=== PATIENT | female | born 1980 | race Caucasian/White ===

== ENCOUNTER 2017-07-17 03:05 | Emergency (ER) | payer OTHER ==
[~2017-07-17] VITALS: Ht 165.1 cm; Wt 66.9 kg
[~2017-07-17 03:05] MED LIST: No meds per pt.
[2017-07-17] MEDS ORDERED: ONDANSETRON 2MG/ML, 2ML ONE (03:53)
[2017-07-17] MEDS ORDERED: MAALOX/HYOSCYAMINE/LIDOCAINE 45 ML BTL ONE (03:53)
[2017-07-17] MEDS ORDERED: MAALOX/HYOSCYAMINE/LIDOCAINE 45 ML BTL PO ONE (04:00)
[2017-07-17] MEDS ORDERED: SODIUM CHLORIDE FLUSH 10ML SYR IVF ONE (04:00)
[2017-07-17] MEDS ORDERED: ONDANSETRON 2MG/ML, 2ML IVPush ONE (04:00)
[2017-07-17 04:18] LABS: ALBUMIN 3.6 g/dL (3.4-5.0); ANION GAP 8 mmol/L (5-15); CALCIUM 8.4 mg/dL (8.5-10.1); CHLORIDE 111 mmol/L (98-107)
[2017-07-17 04:21] LABS: ALANINE AMINOTRANSFERASE 30 U/L (12-78); ALKALINE PHOSPHATASE 67 U/L (45-117); BILIRUBIN,TOTAL 1.2 mg/dL (0.2-1.0); CREATININE 0.51 mg/dL (0.55-1.02); TOTAL PROTEIN 7.4 g/dL (6.4-8.2)
[2017-07-17 04:22] LABS: ACETAMINOPHEN < 2 mcg/mL (10-30); SALICYLATE LEVEL < 1.7 mg/dL (2.8-20.0)
[2017-07-17 04:46] LABS: MEAN CORPUSCULAR HEMOGLOBIN 30.5 pg (27.0-34.8); MEAN CORPUSCULAR HGB CONC 33.6 g/dL (32.4-35.8); MEAN CORPUSCULAR VOLUME 90.7 fL (80-100); MEAN PLATELET VOLUME 9.6 fL (7.4-10.4); PLATELET COUNT 56 x10^3/uL (130-400); RED BLOOD COUNT 3.98 x10^6/uL (3.82-5.3); RED CELL DISTRIBUTION WIDTH 21.6 % (9.6-15.2)
[2017-07-17 04:50] LABS: BASOPHILS # (AUTO) 0.02 x10^3/uL (0-0.1); BASOPHILS % (AUTO) 1 % (0-1); EOSINOPHILS # (AUTO) 0.02 x10^3/uL (0-0.4); EOSINOPHILS % (AUTO) 1 % (1-7); LYMPHOCYTES # (AUTO) 0.63 x10^3/uL (1-3.4); LYMPHOCYTES % (AUTO) 25 % (22-44); MD SCAN; MONOCYTES # (AUTO) 0.28 x10^3/uL (0.2-0.8); MONOCYTES % (AUTO) 11 % (2-9); NEUTROPHILS # (AUTO) 1.61 x10^3/uL (1.8-6.8); NEUTROPHILS % (AUTO) 63 % (42-75)
[2017-07-17 04:52] LABS: AMPHETAMINE SCREEN, URINE Negative (Negative); BARBITURATE SCREEN, URINE Negative (Negative); BENZODIAZEPINE SCREEN, URINE Negative (Negative); CANNABINOID SCREEN, URINE Negative (Negative); COCAINE SCREEN, URINE Negative (Negative); METHADONE SCREEN, URINE Negative (Negative); OPIATE SCREEN, URINE Negative (Negative)
[2017-07-17 04:56] LABS: CULTURE INDICATED? YES; MICROSCOPIC AUTO
[2017-07-17 05:04] VITALS: BP 102/50
== END 2017-07-17 05:12 | disposition home or self-care (01) ==
LOC: ED 05:06
DX: R10.13 Epigastric pain (principal); T47.1X1A Poisoning by other antacids and anti-gastric-secretion drugs, accidental (unintentional), initial encounter; N30.00 Acute cystitis without hematuria; Y92.89 Other specified places as the place of occurrence of the external cause
CPT/HCPCS: 36415; 80053; 80307; 80329; 81001; 83690; 84703; 85025; 87077; 87086; 93005; 96374; 99285; J2405; 87186; G0480

== ENCOUNTER 2017-09-14 20:49 | Emergency (ER) | payer OTHER ==
[~2017-09-14] VITALS: Ht 167.6 cm; Wt 61.0 kg
[2017-09-14] MEDS ORDERED: OMNIPAQUE 350 MG/ML, 100ML BOTTLE ONE (21:20)
[2017-09-14] MEDS ORDERED: MORPHINE SULFATE 4 MG/ML, 1ML IVPush PRN (21:30)
[2017-09-14] MEDS ORDERED: ONDANSETRON ODT 4 MG PO ONE (21:30)
[2017-09-14] MEDS ORDERED: MORPHINE SULFATE 4 MG/ML, 1ML ONE (21:32)
[2017-09-14] MEDS ORDERED: ONDANSETRON ODT 4 MG ONE (21:32)
[2017-09-14 21:57] LABS: ALBUMIN 3.6 g/dL (3.4-5.0); ANION GAP 7 mmol/L (5-15); CALCIUM 8.7 mg/dL (8.5-10.1); CHLORIDE 109 mmol/L (98-107)
[2017-09-14 22:03] LABS: ALANINE AMINOTRANSFERASE 28 U/L (12-78); ALKALINE PHOSPHATASE 76 U/L (45-117); BILIRUBIN,TOTAL 1.3 mg/dL (0.2-1.0); CREATININE 0.52 mg/dL (0.55-1.02); TOTAL PROTEIN 7.6 g/dL (6.4-8.2)
[2017-09-14 22:31] LABS: MICROSCOPIC AUTO
[2017-09-14 22:32] LABS: CULTURE INDICATED? YES
[2017-09-14] MEDS ORDERED: HYDROmorphone 2 MG/ML, 1ML ONE (22:38)
[2017-09-14 22:43] LABS: MEAN CORPUSCULAR HEMOGLOBIN 32.5 pg (27.0-34.8); MEAN CORPUSCULAR HGB CONC 33.8 g/dL (32.4-35.8); MEAN CORPUSCULAR VOLUME 96.4 fL (80-100); MEAN PLATELET VOLUME 9.3 fL (7.4-10.4); PLATELET COUNT 61 x10^3/uL (130-400); RED BLOOD COUNT 4.11 x10^6/uL (3.82-5.3); RED CELL DISTRIBUTION WIDTH 16.8 % (9.6-15.2)
[2017-09-14 23:00] LABS: MD YES
[2017-09-14] MEDS ORDERED: HYDROmorphone 1 MG/ML, 1ML IVPush PRN (23:00)
[2017-09-14 23:11] LABS: ANISOCYTOSIS 1+; EOS#(MANUAL) 0.13 x10^3/uL (0.0-0.4); EOS% (MANUAL) 3 % (1-7); LYMPH#(MANUAL) 1.29 x10^3/uL (1-3.4); LYMPHS% (MANUAL) 30 % (22-44); MONOS#(MANUAL) 0.17 x10^3/uL (0.3-2.7); MONOS% (MANUAL) 4 % (2-9); SEG#(MANUAL) 2.71 x10^3/uL (1.8-6.8); SEGS% (MANUAL) 63 % (42-75)
[2017-09-14 23:12] LABS: <PLATELET ESTIMATE> DECREASED; OVALOCYTES 1+; POLYCHROMASIA 1+
[2017-09-14 23:13] LABS: <PLT MORPHOLOGY> NORMAL PLT MORPH
[2017-09-15] MEDS ORDERED: METOCLOPRAMIDE 5 MG/ML, 2ML IVPush ONE (01:30)
[2017-09-15] MEDS ORDERED: METOCLOPRAMIDE 5 MG/ML, 2ML ONE (01:52)
[2017-09-15 02:49] VITALS: BP 90/54
== END 2017-09-15 02:52 | disposition home or self-care (01) ==
LOC: ED 23:59
DX: R10.84 Generalized abdominal pain (principal); K71.9 Toxic liver disease, unspecified; K59.00 Constipation, unspecified; N30.90 Cystitis, unspecified without hematuria; K74.69 Other cirrhosis of liver; B19.20 Unspecified viral hepatitis C without hepatic coma; K46.9 Unspecified abdominal hernia without obstruction or gangrene
CPT/HCPCS: 36415; 74177; 80053; 81001; 83690; 84703; 85025; 87077; 87086; 87186; 96374; 96375; 99285; J1170; J2765; Q0162; Q9967

== ENCOUNTER 2018-07-18 13:59 | Inpatient (IN) | payer OTHER ==
[~2018-07-18] VITALS: Ht 165.1 cm; Wt 68.2 kg
--- NOTE | 2018-07-18 14:10 | NUR ---
Pt wheeled to room 4, able to transfer to bed with one person assist. notified of pt's cheif complaint
[2018-07-18 14:45] LABS: INTERNATIONAL NORMALIZED RATIO 1.23 (0.93-1.1); PROTHROMBIN TIME 12.9 Seconds (9.6-11.5)
[2018-07-18] MEDS ORDERED: OMNIPAQUE 350 MG/ML, 100ML BOTTLE ONE (14:47)
--- NOTE | 2018-07-18 14:48 | NUR ---
Pt arrives to ED with . States she woke up early this am, felt fine when she took her kids to school, went back to bed and woke up around 11 am with right upper extremity weakness. Pt able to move fingers but unable to lift arm or move upper extremity without assistance. Pt reports neck and back pain, denies any falls/trauma. Per pt states she is dizzy and tired, but oriented x4. Pt able to stand on both legs, denies any weakness/defecit to lower extremities.
--- NOTE | 2018-07-18 14:51 | NUR ---
Pt reports only hx is hep c, denies any home medications
[2018-07-18 14:52] LABS: MD YES; MEAN CORPUSCULAR HEMOGLOBIN 32.5 pg (27.0-34.8); MEAN CORPUSCULAR HGB CONC 33.8 g/dL (32.4-35.8); MEAN CORPUSCULAR VOLUME 96.3 fL (80-100); MEAN PLATELET VOLUME 9.3 fL (7.4-10.4); PLATELET COUNT 52 x10^3/uL (130-400); RED BLOOD COUNT 4.06 x10^6/uL (3.82-5.3); RED CELL DISTRIBUTION WIDTH 14.1 % (9.6-15.2)
[2018-07-18] MEDS ORDERED: SODIUM CHLORIDE 0.9% 1,000ML IVBOLUS ONE (15:00)
--- NOTE | 2018-07-18 15:03 | NUR ---
MD aware of pt's decreasing BP, fluids infusing per MD orders. Pt denies any new s/s
[2018-07-18 15:07] LABS: ANISOCYTOSIS 1+; BAND#(MANUAL) 0.02 x10^3/uL; BANDS%(MANUAL) 1 % (0-7); EOS#(MANUAL) 0.02 x10^3/uL (0.0-0.4); EOS% (MANUAL) 1 % (1-7); LYMPH#(MANUAL) 0.74 x10^3/uL (1-3.4); LYMPHS% (MANUAL) 37 % (22-44); MONOS#(MANUAL) 0.12 x10^3/uL (0.3-2.7); MONOS% (MANUAL) 6 % (2-9); SEGS% (MANUAL) 55 % (42-75)
[2018-07-18 15:08] LABS: <PLATELET ESTIMATE> DECREASED; <PLT MORPHOLOGY> NORMAL PLT MORPH; POLYCHROMASIA 1+
[2018-07-18] MEDS ORDERED: SODIUM CHLORIDE FLUSH 10ML SYR IVF PRN (15:30)
--- NOTE | 2018-07-18 16:12 | NUR ---
REPORT GIVEN TO YENNY LEE.
[2018-07-18] MEDS: SODIUM CHLORIDE 0.9% 1,000 ML IV SCH (16:25)
--- NOTE | 2018-07-18 16:27 | NUR ---
pt transferred to room.
[2018-07-18] MEDS ORDERED: ONDANSETRON ODT 4 MG PO PRN (16:30)
[2018-07-18] MEDS ORDERED: ONDANSETRON 2MG/ML, 2ML IVPush PRN (16:30)
[2018-07-18] MEDS ORDERED: POLYETHYLENE GLYCOL 17 GM PACKET PO PRN (16:30)
[2018-07-18] MEDS ORDERED: ACETAMINOPHEN 325 MG TABLET PO PRN (17:00)
[2018-07-18] MEDS ORDERED: LABETALOL 5 MG/ML SYRINGE IVPush PRN (17:00)
[2018-07-18] MEDS ORDERED: GADOBUTROL 7.5 MMOL/7.5 ML PFS ONE (18:41)
[2018-07-18 19:14] VITALS: BP 101/58
[2018-07-18 19:25] VITALS: BP 101/58
[2018-07-18] MEDS: LEVETIRACETAM 500 MG TABLET PO SCH (20:24)
[2018-07-19] VITALS (13 sets, daily range): BP systolic 94–122; BP diastolic 43–78
[2018-07-19 05:05] LABS: CHLORIDE 112 mmol/L (98-107)
[2018-07-19 05:09] LABS: MEAN CORPUSCULAR HEMOGLOBIN 33.7 pg (27.0-34.8); MEAN CORPUSCULAR HGB CONC 34.8 g/dL (32.4-35.8); MEAN CORPUSCULAR VOLUME 96.8 fL (80-100); RED BLOOD COUNT 3.73 x10^6/uL (3.82-5.3); RED CELL DISTRIBUTION WIDTH 14.1 % (9.6-15.2)
[2018-07-19 05:13] LABS: ALANINE AMINOTRANSFERASE 36 U/L (12-78); ALBUMIN 3.2 g/dL (3.4-5.0); ALKALINE PHOSPHATASE 74 U/L (45-117); ANION GAP 7 mmol/L (5-15); BILIRUBIN,TOTAL 2.1 mg/dL (0.2-1.0); CALCIUM 8.5 mg/dL (8.5-10.1); CREATININE 0.43 mg/dL (0.55-1.02); TOTAL PROTEIN 6.4 g/dL (6.4-8.2)
[2018-07-19] MEDS: SODIUM CHLORIDE 0.9% 1,000 ML IV SCH (05:32)
[2018-07-19 05:56] LABS: MD YES
[2018-07-19 05:58] LABS: MEAN PLATELET VOLUME 9.6 fL (7.4-10.4)
[2018-07-19 05:59] LABS: <PLATELET ESTIMATE> DECREASED; <PLT MORPHOLOGY> NORMAL PLT MORPH; ANISOCYTOSIS 1+; BAND#(MANUAL) 0.02 x10^3/uL; BANDS%(MANUAL) 1 % (0-7); BASOS#(MANUAL) 0.04 x10^3/uL (0-0.1); BASOS% (MANUAL) 2 % (0-1); EOS#(MANUAL) 0.08 x10^3/uL (0.0-0.4); EOS% (MANUAL) 4 % (1-7); LYMPH#(MANUAL) 0.96 x10^3/uL (1-3.4); LYMPHS% (MANUAL) 48 % (22-44); MONOS#(MANUAL) 0.06 x10^3/uL (0.3-2.7); MONOS% (MANUAL) 3 % (2-9); POLYCHROMASIA 1+; SEG#(MANUAL) 0.84 x10^3/uL (1.8-6.8); SEGS% (MANUAL) 42 % (42-75)
[2018-07-19 06:01] LABS: PLATELET COUNT 42 x10^3/uL (130-400)
[2018-07-19] MEDS: LEVETIRACETAM 500 MG TABLET PO SCH (09:31)
[2018-07-19] MEDS ORDERED: DEXAMETHASONE 4 MG TABLET PO ONE (11:00)
[2018-07-19] MEDS: DEXAMETHASONE 4 MG TABLET PO SCH ×2 (12:15→17:24)
[2018-07-19] MEDS ORDERED: DIPHENHYDRAMINE 50 MG/ML, 1ML ONE (17:51)
[2018-07-19] MEDS ORDERED: DIPHENHYDRAMINE 50 MG/ML, 1ML IVPush PRN (18:00)
[2018-07-19] MEDS: LEVETIRACETAM 500 MG in SODIUM CHLORIDE 0.9% 100 ML IV SCH (20:26)
[2018-07-19] MEDS: DEXTROSE 5% 1,000 ML IV SCH (20:49)
[2018-07-20] VITALS (8 sets, daily range): BP systolic 96–119; BP diastolic 36–65
[2018-07-20 05:41] LABS: BASOPHILS % (AUTO) 0 % (0-1); EOSINOPHILS % (AUTO) 0 % (1-7); LYMPHOCYTES % (AUTO) 8 % (22-44); MD NO; MEAN CORPUSCULAR HEMOGLOBIN 33.8 pg (27.0-34.8); MEAN CORPUSCULAR HGB CONC 34.9 g/dL (32.4-35.8); MEAN CORPUSCULAR VOLUME 96.8 fL (80-100); MEAN PLATELET VOLUME 8.8 fL (7.4-10.4); MONOCYTES # (AUTO) 0.07 x10^3/uL (0.2-0.8); MONOCYTES % (AUTO) 2 % (2-9); NEUTROPHILS # (AUTO) 3.35 x10^3/uL (1.8-6.8); NEUTROPHILS % (AUTO) 90 % (42-75); PLATELET COUNT 106 x10^3/uL (130-400); RED BLOOD COUNT 3.43 x10^6/uL (3.82-5.3); RED CELL DISTRIBUTION WIDTH 13.8 % (9.6-15.2)
[2018-07-20 05:45] LABS: INTERNATIONAL NORMALIZED RATIO 1.29 (0.93-1.1); PROTHROMBIN TIME 13.5 Seconds (9.6-11.5)
[2018-07-20 05:47] LABS: ALANINE AMINOTRANSFERASE 33 U/L (12-78); ALBUMIN 3.4 g/dL (3.4-5.0); ANION GAP 7 mmol/L (5-15); CALCIUM 8.6 mg/dL (8.5-10.1); CHLORIDE 109 mmol/L (98-107); CREATININE 0.42 mg/dL (0.55-1.02)
[2018-07-20 05:50] LABS: ALKALINE PHOSPHATASE 76 U/L (45-117); BILIRUBIN,TOTAL 1.5 mg/dL (0.2-1.0); TOTAL PROTEIN 7.2 g/dL (6.4-8.2)
[2018-07-20] MEDS ORDERED: POTASSIUM CHLORIDE 20 MEQ TAB.ER.PRT PO ONE (07:00)
[2018-07-20] MEDS: LEVETIRACETAM 500 MG in SODIUM CHLORIDE 0.9% 100 ML IV SCH ×2 (08:24→19:54)
[2018-07-20] MEDS: DEXAMETHASONE 4 MG TABLET PO SCH ×3 (08:24→17:09)
[2018-07-20] MEDS ORDERED: GADOBUTROL 7.5 MMOL/7.5 ML PFS ONE (09:48)
[2018-07-20] MEDS: DEXTROSE 5% 1,000 ML IV SCH (17:11)
[2018-07-21 04:25] LABS: BASOPHILS % (AUTO) 0 % (0-1); EOSINOPHILS % (AUTO) 0 % (1-7); LYMPHOCYTES # (AUTO) 0.38 x10^3/uL (1-3.4); LYMPHOCYTES % (AUTO) 8 % (22-44); MD NO; MEAN CORPUSCULAR HEMOGLOBIN 33.4 pg (27.0-34.8); MEAN CORPUSCULAR HGB CONC 34.3 g/dL (32.4-35.8); MEAN CORPUSCULAR VOLUME 97.4 fL (80-100); MEAN PLATELET VOLUME 9.2 fL (7.4-10.4); MONOCYTES # (AUTO) 0.24 x10^3/uL (0.2-0.8); MONOCYTES % (AUTO) 5 % (2-9); NEUTROPHILS # (AUTO) 4.13 x10^3/uL (1.8-6.8); NEUTROPHILS % (AUTO) 87 % (42-75); PLATELET COUNT 112 x10^3/uL (130-400); RED BLOOD COUNT 3.59 x10^6/uL (3.82-5.3); RED CELL DISTRIBUTION WIDTH 14.3 % (9.6-15.2)
[2018-07-21 04:30] VITALS: BP 84/46
[2018-07-21] MEDS: DEXTROSE 5% 1,000 ML IV SCH ×2 (04:49→20:08)
[2018-07-21] MEDS ORDERED: SODIUM CHLORIDE 0.9%, 500ML IVBOLUS ONE (07:00)
[2018-07-21] MEDS ORDERED: NOVOSEVEN RT (FACTOR VIIA) RECOMB 1,000 MCG IVPush ONE (07:30)
[2018-07-21] MEDS ORDERED: BACITRACIN 50,000 UNIT ONE (07:34)
[2018-07-21] MEDS ORDERED: THROMBIN 5,000 UNIT VIAL TP ONE (07:34)
[2018-07-21] MEDS ORDERED: BUPIVACAINE/PF-EPI 0.5% 1:200K ONE (07:34)
[2018-07-21] MEDS ORDERED: FENTANYL PF 250 MCG/5ML ONE (07:43)
[2018-07-21] MEDS ORDERED: NEOSTIGMINE 1 MG/ML, 10ML ONE (07:46)
[2018-07-21] MEDS ORDERED: ONDANSETRON 2MG/ML, 2ML ONE (07:46)
[2018-07-21] MEDS ORDERED: DEXAMETHASONE 4 MG/ML, 1ML ONE (07:46)
[2018-07-21] MEDS ORDERED: GLYCOPYRROLATE 0.2MG/1ML, 5ML ONE (07:46)
[2018-07-21] MEDS ORDERED: CEFAZOLIN 1,000 MG ONE (07:46)
[2018-07-21] MEDS ORDERED: SUCCINYLCHOLINE 20 MG/ML, 10ML ONE (07:46)
[2018-07-21] MEDS ORDERED: PROPOFOL 10 MG/ML, 20ML ONE (07:46)
[2018-07-21] MEDS ORDERED: ROCURONIUM 10MG/ML,5ML ONE (07:46)
[2018-07-21] MEDS: DEXAMETHASONE 4 MG TABLET PO SCH ×3 (08:00→18:03)
[2018-07-21] MEDS ORDERED: MIDAZOLAM 1 MG/ML, 2ML ONE (08:03)
[2018-07-21] MEDS ORDERED: CEFUROXIME 1.5 GM ONE (08:43)
[2018-07-21] MEDS ORDERED: SUGAMMADEX 200 MG/2 ML IVPush ONE (09:19)
[2018-07-21] MEDS ORDERED: LORazepam 2 MG/ML, 1ML IVPush PRN (09:30)
[2018-07-21] MEDS ORDERED: ONDANSETRON 2MG/ML, 2ML IV PRN (09:30)
[2018-07-21] MEDS ORDERED: HYDROmorphone 2 MG/ML, 1ML IVPush PRN (09:30)
[2018-07-21] MEDS ORDERED: ONDANSETRON ODT 8 MG PO PRN (09:30)
[2018-07-21] MEDS ORDERED: ACETAMINOPHEN 325 MG TABLET PO PRN (09:30)
[2018-07-21] MEDS ORDERED: FENTANYL PF 100 MCG/2ML IV PRN (09:30)
[2018-07-21] MEDS ORDERED: OXYcodone 5 MG/5 ML ORAL.SOL UDC PO PRN (09:30)
[2018-07-21] MEDS ORDERED: NEOSPORIN OINT, 15GM ONE (09:40)
[2018-07-21] MEDS ORDERED: FENTANYL PF 100 MCG/2ML ONE (10:19)
[2018-07-21] MEDS ORDERED: BUPIVACAINE/PF-EPI 0.5% 1:200K INFIL ONE (10:23)
[2018-07-21] MEDS ORDERED: OXYcodone 5 MG/5 ML ORAL.SOL UDC ONE (10:38)
[2018-07-21] MEDS: LEVETIRACETAM 500 MG in SODIUM CHLORIDE 0.9% 100 ML IV SCH ×2 (11:27→20:08)
[2018-07-22 04:08] VITALS: BP 98/50
[2018-07-22 04:57] LABS: MEAN CORPUSCULAR HEMOGLOBIN 33.7 pg (27.0-34.8); MEAN CORPUSCULAR HGB CONC 34.4 g/dL (32.4-35.8); MEAN PLATELET VOLUME 8.9 fL (7.4-10.4); PLATELET COUNT 84 x10^3/uL (130-400); RED BLOOD COUNT 3.19 x10^6/uL (3.82-5.3); RED CELL DISTRIBUTION WIDTH 14.3 % (9.6-15.2)
[2018-07-22 05:07] LABS: ANION GAP 5 mmol/L (5-15); CALCIUM 8.1 mg/dL (8.5-10.1); CHLORIDE 107 mmol/L (98-107)
[2018-07-22 05:09] LABS: CREATININE 0.43 mg/dL (0.55-1.02)
[2018-07-22 06:11] LABS: BASOPHILS # (AUTO) 0.01 x10^3/uL (0-0.1); BASOPHILS % (AUTO) 0 % (0-1); EOSINOPHILS % (AUTO) 0 % (1-7); LYMPHOCYTES % (AUTO) 9 % (22-44); MD SCAN; MONOCYTES # (AUTO) 0.36 x10^3/uL (0.2-0.8); MONOCYTES % (AUTO) 10 % (2-9); NEUTROPHILS % (AUTO) 81 % (42-75)
[2018-07-22] MEDS: DEXAMETHASONE 4 MG TABLET PO SCH ×3 (08:30→18:32)
[2018-07-22] MEDS: LEVETIRACETAM 500 MG in SODIUM CHLORIDE 0.9% 100 ML IV SCH ×2 (08:31→19:46)
[2018-07-22 10:27] VITALS: BP 100/50
[2018-07-22 10:42] VITALS: BP 103/49
[2018-07-22 11:30] VITALS: BP 106/55
[2018-07-22] MEDS: SODIUM CHLORIDE 0.9% 1,000 ML IV SCH (17:04)
[2018-07-23] VITALS (7 sets, daily range): BP systolic 89–107; BP diastolic 42–52
[2018-07-23] MEDS: SODIUM CHLORIDE 0.9% 1,000 ML IV SCH ×2 (03:29→23:00)
[2018-07-23 04:40] LABS: ALANINE AMINOTRANSFERASE 31 U/L (12-78); ALBUMIN 2.8 g/dL (3.4-5.0); ANION GAP 3 mmol/L (5-15); CALCIUM 7.8 mg/dL (8.5-10.1); CHLORIDE 109 mmol/L (98-107); CREATININE 0.45 mg/dL (0.55-1.02)
[2018-07-23 04:42] LABS: MEAN CORPUSCULAR HEMOGLOBIN 33.3 pg (27.0-34.8); MEAN CORPUSCULAR HGB CONC 33.8 g/dL (32.4-35.8); MEAN CORPUSCULAR VOLUME 98.4 fL (80-100); MEAN PLATELET VOLUME 8.7 fL (7.4-10.4); PLATELET COUNT 83 x10^3/uL (130-400); RED BLOOD COUNT 3.32 x10^6/uL (3.82-5.3)
[2018-07-23 04:43] LABS: ALKALINE PHOSPHATASE 76 U/L (45-117); BILIRUBIN,TOTAL 1.1 mg/dL (0.2-1.0)
[2018-07-23 05:07] LABS: BASOPHILS % (AUTO) 0 % (0-1); EOSINOPHILS % (AUTO) 0 % (1-7); LYMPHOCYTES # (AUTO) 0.33 x10^3/uL (1-3.4); LYMPHOCYTES % (AUTO) 13 % (22-44); MD SCAN; MONOCYTES % (AUTO) 8 % (2-9); NEUTROPHILS # (AUTO) 1.96 x10^3/uL (1.8-6.8); NEUTROPHILS % (AUTO) 79 % (42-75)
[2018-07-23 05:34] LABS: INTERNATIONAL NORMALIZED RATIO 1.39 (0.93-1.1); PROTHROMBIN TIME 14.5 Seconds (9.6-11.5)
[2018-07-23] MEDS: LEVETIRACETAM 500 MG in SODIUM CHLORIDE 0.9% 100 ML IV SCH ×2 (08:54→20:13)
[2018-07-23] MEDS: DEXAMETHASONE 4 MG TABLET PO SCH ×3 (08:54→16:39)
[2018-07-23] MEDS: DOCUSATE 100 MG CAPSULE PO PRN (22:05)
[2018-07-24 04:06] VITALS: BP 95/52
[2018-07-24 04:55] LABS: INTERNATIONAL NORMALIZED RATIO 1.38 (0.93-1.1); PROTHROMBIN TIME 14.4 Seconds (9.6-11.5)
[2018-07-24 04:59] LABS: ALBUMIN 2.7 g/dL (3.4-5.0); ANION GAP 3 mmol/L (5-15); CALCIUM 7.8 mg/dL (8.5-10.1); CHLORIDE 109 mmol/L (98-107)
[2018-07-24 05:04] LABS: ALANINE AMINOTRANSFERASE 33 U/L (12-78); ALKALINE PHOSPHATASE 74 U/L (45-117); BILIRUBIN,TOTAL 1.1 mg/dL (0.2-1.0); CREATININE 0.46 mg/dL (0.55-1.02); TOTAL PROTEIN 6.1 g/dL (6.4-8.2)
[2018-07-24 05:50] LABS: BASOPHILS % (AUTO) 0 % (0-1); EOSINOPHILS % (AUTO) 0 % (1-7); LYMPHOCYTES % (AUTO) 15 % (22-44); MD SCAN; MEAN CORPUSCULAR HEMOGLOBIN 33.2 pg (27.0-34.8); MEAN CORPUSCULAR HGB CONC 34.4 g/dL (32.4-35.8); MEAN CORPUSCULAR VOLUME 96.7 fL (80-100); MEAN PLATELET VOLUME 8.3 fL (7.4-10.4); MONOCYTES # (AUTO) 0.13 x10^3/uL (0.2-0.8); MONOCYTES % (AUTO) 7 % (2-9); NEUTROPHILS # (AUTO) 1.52 x10^3/uL (1.8-6.8); NEUTROPHILS % (AUTO) 78 % (42-75); PLATELET COUNT 99 x10^3/uL (130-400); RED BLOOD COUNT 3.35 x10^6/uL (3.82-5.3); RED CELL DISTRIBUTION WIDTH 14.4 % (9.6-15.2)
[2018-07-24] MEDS: DEXAMETHASONE 4 MG TABLET PO SCH ×3 (08:27→17:26)
[2018-07-24] MEDS: LEVETIRACETAM 500 MG in SODIUM CHLORIDE 0.9% 100 ML IV SCH ×2 (08:28→20:13)
[2018-07-24 08:44] VITALS: BP 97/49
[2018-07-24 09:00] VITALS: BP 98/57
[2018-07-24 10:28] VITALS: BP 94/50
[2018-07-24] MEDS: METHOCARBAMOL 500 MG TABLET PO PRN (22:53)
[2018-07-25 04:00] VITALS: BP 100/49
[2018-07-25] MEDS: DEXAMETHASONE 4 MG TABLET PO SCH ×3 (07:50→18:15)
[2018-07-25] MEDS: LEVETIRACETAM 500 MG TABLET PO SCH ×2 (07:50→21:23)
[2018-07-25] MEDS: DOCUSATE 100 MG CAPSULE PO PRN (08:23)
[2018-07-25 10:51] VITALS: BP 103/51
[2018-07-25 13:34] VITALS: BP 97/54
[2018-07-25 19:50] VITALS: BP 101/64
[2018-07-26 00:28] VITALS: BP 100/53
[2018-07-26] MEDS ORDERED: BISACODYL 10 MG SUPP PR PRN (08:00)
[2018-07-26] MEDS: DEXAMETHASONE 4 MG TABLET PO SCH ×3 (08:19→17:06)
[2018-07-26] MEDS: LEVETIRACETAM 500 MG TABLET PO SCH ×2 (08:19→21:27)
[2018-07-26 08:33] VITALS: BP 94/52
[2018-07-26] MEDS: DOCUSATE 100 MG CAPSULE PO SCH ×2 (09:00→21:27)
[2018-07-26 09:08] LABS: BASOPHILS % (AUTO) 0 % (0-1); EOSINOPHILS % (AUTO) 0 % (1-7); LYMPHOCYTES # (AUTO) 0.35 x10^3/uL (1-3.4); LYMPHOCYTES % (AUTO) 10 % (22-44); MD NO; MEAN CORPUSCULAR HEMOGLOBIN 32.8 pg (27.0-34.8); MEAN CORPUSCULAR HGB CONC 33.6 g/dL (32.4-35.8); MEAN CORPUSCULAR VOLUME 97.6 fL (80-100); MEAN PLATELET VOLUME 7.8 fL (7.4-10.4); MONOCYTES % (AUTO) 8 % (2-9); NEUTROPHILS # (AUTO) 3.03 x10^3/uL (1.8-6.8); NEUTROPHILS % (AUTO) 82 % (42-75); PLATELET COUNT 109 x10^3/uL (130-400); RED BLOOD COUNT 3.95 x10^6/uL (3.82-5.3); RED CELL DISTRIBUTION WIDTH 14.6 % (9.6-15.2)
[2018-07-26] MEDS: MAGNESIUM HYDROXIDE 8%, 30ML UDC PO SCH (10:01)
[2018-07-26 13:54] VITALS: BP 92/46
[2018-07-26 18:15] VITALS: BP 98/57
[2018-07-26] MEDS: METHOCARBAMOL 500 MG TABLET PO PRN (21:35)
[2018-07-27 00:20] VITALS: BP 99/58
[2018-07-27 06:04] LABS: CHLORIDE 108 mmol/L (98-107)
[2018-07-27 06:12] LABS: ALANINE AMINOTRANSFERASE 53 U/L (12-78); ALBUMIN 2.8 g/dL (3.4-5.0); ALKALINE PHOSPHATASE 73 U/L (45-117); ANION GAP 4 mmol/L (5-15); BILIRUBIN,TOTAL 1.2 mg/dL (0.2-1.0); CALCIUM 7.8 mg/dL (8.5-10.1); CREATININE 0.47 mg/dL (0.55-1.02); TOTAL PROTEIN 5.9 g/dL (6.4-8.2)
[2018-07-27 07:50] VITALS: BP 101/60
[2018-07-27] MEDS: DEXAMETHASONE 4 MG TABLET PO SCH ×3 (08:02→16:20)
[2018-07-27] MEDS: LEVETIRACETAM 500 MG TABLET PO SCH ×2 (08:02→21:41)
[2018-07-27] MEDS: DOCUSATE 100 MG CAPSULE PO SCH ×2 (08:02→21:41)
[2018-07-27] MEDS: MAGNESIUM HYDROXIDE 8%, 30ML UDC PO SCH (08:02)
[2018-07-27 13:30] VITALS: BP 89/50
[2018-07-27 19:07] VITALS: BP 93/46
[2018-07-28 03:49] VITALS: BP 89/43
[2018-07-28] MEDS ORDERED: SODIUM CHLORIDE 0.9% 500 ML IV SCH (07:30)
[2018-07-28] MEDS: DEXAMETHASONE 4 MG TABLET PO SCH ×3 (07:44→16:57)
[2018-07-28] MEDS: MAGNESIUM HYDROXIDE 8%, 30ML UDC PO SCH (07:44)
[2018-07-28] MEDS: LEVETIRACETAM 500 MG TABLET PO SCH ×2 (07:44→22:06)
[2018-07-28] MEDS: DOCUSATE 100 MG CAPSULE PO SCH ×2 (07:44→22:06)
[2018-07-28 08:00] VITALS: BP 90/43
[2018-07-28 14:03] VITALS: BP 91/46
[2018-07-28] MEDS ORDERED: SODIUM CHLORIDE 0.9% 1,000ML IVBOLUS ONE (14:30)
[2018-07-28 19:39] VITALS: BP 99/45
[2018-07-29] MEDS: METHOCARBAMOL 500 MG TABLET PO PRN (03:00)
[2018-07-29 03:22] VITALS: BP 109/56
[2018-07-29 08:26] VITALS: BP 93/54
[2018-07-29] MEDS: MAGNESIUM HYDROXIDE 8%, 30ML UDC PO SCH (08:55)
[2018-07-29] MEDS: LEVETIRACETAM 500 MG TABLET PO SCH ×2 (08:55→21:28)
[2018-07-29] MEDS: DEXAMETHASONE 4 MG TABLET PO SCH ×3 (08:55→17:11)
[2018-07-29] MEDS: DOCUSATE 100 MG CAPSULE PO SCH ×2 (08:55→21:27)
[2018-07-29 13:06] VITALS: BP 100/61
[2018-07-29 19:23] VITALS: BP 102/65
[2018-07-30 01:07] VITALS: BP 93/53
[2018-07-30] MEDS: LEVETIRACETAM 500 MG TABLET PO SCH ×2 (08:13→19:48)
[2018-07-30] MEDS: DOCUSATE 100 MG CAPSULE PO SCH ×2 (08:13→19:48)
[2018-07-30] MEDS: DEXAMETHASONE 4 MG TABLET PO SCH ×3 (08:13→16:48)
[2018-07-30] MEDS: MAGNESIUM HYDROXIDE 8%, 30ML UDC PO SCH (08:13)
[2018-07-30 08:17] VITALS: BP 103/62
[2018-07-30 13:15] VITALS: BP 92/54
[2018-07-30 19:56] VITALS: BP 97/57
[2018-07-31 03:37] VITALS: BP 93/59
[2018-07-31 07:16] VITALS: BP 101/58
[2018-07-31] MEDS: DEXAMETHASONE 4 MG TABLET PO SCH ×3 (08:32→18:04)
[2018-07-31] MEDS: LEVETIRACETAM 500 MG TABLET PO SCH ×2 (08:32→21:01)
[2018-07-31] MEDS: DOCUSATE 100 MG CAPSULE PO SCH (08:32)
[2018-07-31] MEDS: MAGNESIUM HYDROXIDE 8%, 30ML UDC PO SCH (08:32)
[2018-07-31] MEDS ORDERED: MAGNESIUM HYDROXIDE 8%, 30ML UDC PO PRN (09:30)
[2018-07-31] MEDS ORDERED: DOCUSATE 100 MG CAPSULE PO PRN (09:30)
[2018-07-31 12:15] VITALS: BP 91/55
[2018-07-31 19:07] VITALS: BP 102/59
[2018-08-01 01:11] VITALS: BP 95/51
[2018-08-01] MEDS ORDERED: DEXA4TAB66 PO (06:56)
[2018-08-01] MEDS ORDERED: LEVE500T53 PO (06:56)
[2018-08-01 08:12] VITALS: BP 95/55
[2018-08-01] MEDS: LEVETIRACETAM 500 MG TABLET PO SCH (09:06)
[2018-08-01] MEDS: DEXAMETHASONE 4 MG TABLET PO SCH (09:06)
[2018-08-01 09:57] VITALS: BP 105/58
== END 2018-08-01 10:45 | DRG 24 ==
LOC: ED 15:22 → EDIP 15:23 → ED 15:32 → CCU 16:32 → 4NOR 07-25 10:48
PROVIDERS: ADMIT Internal Medicine; ATTEND Internal Medicine
PROC: 30233K1 Transfusion of Nonautologous Frozen Plasma into Peripheral Vein, Percutaneous Approach (ICD-10-PCS; 2018-07-20)
PROC: 00C70ZZ Extirpation of Matter from Cerebral Hemisphere, Open Approach (ICD-10-PCS; 2018-07-21)
PROC: 00B70ZX Excision of Cerebral Hemisphere, Open Approach, Diagnostic (ICD-10-PCS; 2018-07-21)
PROC: 30233R1 Transfusion of Nonautologous Platelets into Peripheral Vein, Percutaneous Approach (ICD-10-PCS; 2018-07-21)
PROC: 03HY32Z Insertion of Monitoring Device into Upper Artery, Percutaneous Approach (ICD-10-PCS; principal; 2018-07-21 07:30)
DX: I63.512 Cerebral infarction due to unspecified occlusion or stenosis of left middle cerebral artery (principal); D61.818 Other pancytopenia; G81.91 Hemiplegia, unspecified affecting right dominant side; I85.00 Esophageal varices without bleeding; B19.20 Unspecified viral hepatitis C without hepatic coma; I86.4 Gastric varices; K59.00 Constipation, unspecified; K74.60 Unspecified cirrhosis of liver; R56.9 Unspecified convulsions; R79.1 Abnormal coagulation profile; Z79.899 Other long term (current) drug therapy; Z80.1 Family history of malignant neoplasm of trachea, bronchus and lung; Z82.49 Family history of ischemic heart disease and other diseases of the circulatory system; Z88.0 Allergy status to penicillin
CPT/HCPCS: 36415; 80177; 99285; J3490; 70450; 70496; 70498; 70544; 70553; 80047; 80048; 80053; 83735; 84100; 84703; 85025; 85049; 85610; 85730; 86850; 86900; 87081; 88305; 93005; 95813; 96360; A9585; C1713; G0378; J0690; J0697; J1100; J1953; J2250; J2405; J2704; J2710; J3010; J7070; Q9967; 92523-GN; C1781; J0330; J1200; J7030; J7040; P9017; P9035

== ENCOUNTER 2020-03-22 23:59 | Emergency (ER) | payer OTHER ==
[~2020-03-22] VITALS: Ht 165.1 cm; Wt 63.6 kg
[~2020-03-22 23:59] MED LIST changes: +DEXA4TAB66 PO; +LEVE500T53 PO
--- NOTE | 2020-03-23 00:23 | NUR ---
PT. TO ROOM FROM [facility] VIA W/C AT THIS TIME. WHILE IN [facility] PT. "PASSED OUT" IN W/C PER FAMILY. RESPIRATIONS VISIBLE AND PULSE PALPABLE BUT PT. NOT RESPONSIVE TO PAINFUL STIMULI AT THAT TIME. TAKEN STRAIGHT BACK TO ED 04 BECAUSE OF THIS. ONCE IN ROOM PT. WAS TRANSFERED TO [facility]: PT. WOKE AND IS ABLE TO ANSWER QUESTIONS AT THIS TIME. MONITORS PLACED.
[2020-03-23] MEDS ORDERED: SODIUM CHLORIDE 0.9% 1,000ML IVBOLUS ONE (00:30)
[2020-03-23] MEDS ORDERED: ONDANSETRON 2MG/ML, 2ML IVPush ONE (00:30)
[2020-03-23] MEDS ORDERED: HYDROmorphone 1 MG/ML, 1ML INJ IVPush PRN (00:30)
--- NOTE | 2020-03-23 00:30 | NUR ---
PT STATES HAVING NEW ONSET ABDOMINAL PAIN THAT STARTED IN THE AFTERNOON 03/22. PT IN 03/13 ERP EVALUATED PT, PT MEDICATED PER EMAR, AND PLACED ON
[2020-03-23] MEDS ORDERED: HYDROmorphone 1 MG/ML, 1ML INJ ONE ×2 (00:33→01:23)
[2020-03-23] MEDS ORDERED: ONDANSETRON 2MG/ML, 2ML ONE (00:33)
[2020-03-23 00:51] LABS: BASOPHILS % (AUTO) 1 % (0-1); EOSINOPHILS % (AUTO) 1 % (1-7); LYMPHOCYTES % (AUTO) 15 % (22-44); MEAN CORPUSCULAR HEMOGLOBIN 31.2 pg (27.0-34.8); MEAN CORPUSCULAR HGB CONC 33.4 g/dL (32.4-35.8); MEAN PLATELET VOLUME 9.6 fL (7.4-10.4); MONOCYTES % (AUTO) 9 % (2-9); NEUTROPHILS % (AUTO) 75 % (42-75); PLATELET COUNT 51 x10^3/uL (130-400); RED BLOOD COUNT 4.12 x10^6/uL (3.82-5.3); RED CELL DISTRIBUTION WIDTH 15.4 % (9.6-15.2)
[2020-03-23 01:00] LABS: ALANINE AMINOTRANSFERASE 25 U/L (12-78); ALBUMIN 3.9 g/dL (3.4-5.0); ANION GAP 8 mmol/L (5-15); CALCIUM 9.1 mg/dL (8.5-10.1); CHLORIDE 110 mmol/L (98-107); CREATININE 0.55 mg/dL (0.55-1.02)
[2020-03-23 01:05] LABS: ALKALINE PHOSPHATASE 101 U/L (45-117); BILIRUBIN,TOTAL 1.3 mg/dL (0.2-1.0); TOTAL PROTEIN 7.3 g/dL (6.4-8.2)
--- NOTE | 2020-03-23 01:13 | NUR ---
PT WAS IN 10/10 PAIN. PT STATES FEELING A LITTLE BETER AFTER MEDICATION ADMIN. PT STILL GRIMACING AND HAVING GUARDED MOVEMENT IN BED. PT PLACED ON 02 BECAUSE OF PAIN MEDS, ON CONTINUOUS PULSE OX.
[2020-03-23 01:17] LABS: MD SCAN
--- NOTE | 2020-03-23 01:27 | NUR ---
CT TOLD THIS RN THAT PT DOES NOT WANT TO GO TO CT BECAUSE SHE IS IN 10/10 PAIN. THIS RN WENT TO ASSESS PT AND PT STATED SHE IS NOW IN 4/10 PAIN AND IS OK TO GO GET THE SCAN. CT CALLED AND UPDATED.
[2020-03-23] MEDS ORDERED: OMNIPAQUE 350 MG/ML, 100ML BOTTLE ONE (01:45)
--- NOTE | 2020-03-23 02:28 | NUR ---
PT'S BP MAP WAS 59. AWARE AND STATES SHE TRENDS LOW AND IT IS NOT A CONCERNA T THIS TIME. PT WAS REFUSING UA EARLIER BECAUSE OF PAIN, BUT IS NOW ATTEMPTING URINE AT THIS TIME.
[2020-03-23 02:45] LABS: MICROSCOPIC AUTO
[2020-03-23 02:48] VITALS: BP 96/50
--- NOTE | 2020-03-23 02:48 | NUR ---
URINE SAMPLE COLLECTED AND SENT TO LAB. DR. MCARTHUR IN TO DISCUSS FINDINGS THUS FAR AND POC.
[2020-03-23] MEDS ORDERED: METOCLOPRAMIDE 5 MG/ML, 2ML IVPush ONE (03:00)
[2020-03-23] MEDS ORDERED: METOCLOPRAMIDE 5 MG/ML, 2ML ONE (03:22)
== END 2020-03-23 04:19 | disposition home or self-care (01) ==
LOC: ED 03-23 01:54
DX: B18.2 Chronic viral hepatitis C (principal); K29.00 Acute gastritis without bleeding; R10.13 Epigastric pain; R10.84 Generalized abdominal pain; R11.2 Nausea with vomiting, unspecified; Z86.73 Personal history of transient ischemic attack (TIA), and cerebral infarction without residual deficits
CPT/HCPCS: 36415; 74177; 80053; 81001; 83690; 84703; 85025; 96361; 96374; 96375; 99285; J1170; J2405; J2765; J7030; Q9967